=== PATIENT | male | born 2000 | race Caucasian/White ===

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

== ENCOUNTER 2022-04-17 14:33 | Emergency (ER) | payer OTHER, SELFPAY ==
[2022-04-17 14:35] VITALS: BP 140/80; PULSE 78; RESP 15; TEMP 37.1; O2SAT 100; BMI 17.7
--- NOTE | 2022-04-17 15:04 | ED.WOUNDLAC ---
HPI - Wound/Laceration General Chief Complaint: Wound/Laceration Stated Complaint: Cut tip of finger off at work Time Seen by Provider: 04/17/22 14:49 Source: patient Mode of arrival: Ambulatory History of Present Illness HPI narrative: Patient is a 21-year-old male who was at work when a glass that he was washing broke and he cut the tip of his right index finger. He is up-to-date on immunizations. He did wash it prior to arrival. Was covered with a bandage prior to arrival. Related Data Home Medications Medication Instructions Recorded Confirmed No Known Home Medications 04/15/22 04/15/22 Allergies Allergy/AdvReac Type Severity Reaction Status Date / Time No Known Drug Allergies Allergy Verified 04/17/22 14:42 Review of Systems Constitutional Constitutional: Reports system reviewed and no additional complaints, except as documented Integumentary/Breasts Comments: Cut to the tip of the right index finger Neurologic Neurologic: Reports system reviewed and no additional complaints, except as documented Hematologic/Lymphatic Hematologic/Lymphatic: Reports system reviewed and no additional complaints, except as documented Patient History Medical History Healthy adult Social History Smoking Status: Never smoker Smoking Status: Never smoker alcohol intake frequency: holidays/special occasions only Substance Use Type: does not use Exam Initial Vital Signs Initial Vital Signs: Vital Signs Temperature 98.7 F 04/17/22 14:35 Pulse Rate 78 04/17/22 14:35 Respiratory Rate 15 04/17/22 14:35 Blood Pressure 140/80 04/17/22 14:35 Pulse Oximetry 100 04/17/22 14:35 Oxygen Delivery Method 04/17/22 14:35 Const General: cooperative and comfortable HENMT Head: normal to inspection and normocephalic Cardio Pulses: radial pulses present on the right Skin Other: Patient with a superficial very distal skin avulsion to the pad of the right index finger. There is no nail involvement. Neuro Sensory Exam: no sensory deficits noted Extrem Other: Distal superficial skin avulsion right index finger Course Vital Signs Vital signs: Vital Signs - 8 hr 04/17/22 14:35 Temperature 98.7 F Pulse Rate 78 Respiratory Rate 15 Blood Pressure 140/80 Pulse Oximetry 100 Oxygen Delivery Method Room Air MDM - Wound/Laceration MDM Narrative Medical decision making narrative: A small piece of Gelfoam was placed over the area to stop the bleeding and then it was covered with a bandage. Patient was given care instructions and return precautions. He expressed understanding and agreement. Discharge Plan Departure Patient Disposition: Home Clinical Impression: Avulsion of skin Instructions: DI for Avulsion Laceration (Not Requiring Sutures) Activity Restrictions/Additional Instructions: Recommend that you leave the bandage was placed today on for the next 24 hours. After that you can take the bandage off. You can put topical antibiotic ointment over the area. I do recommend that you do not soak your hand in any water until the wound is healed. Return to the emergency department for any new or worsening symptoms. Prescriptions: No Action No Known Home Medications Referrals: Emmanuel Wu MD [Primary Care Provider] -
== END 2022-04-17 15:15 | disposition home or self-care (01) ==
PROVIDERS: Emergency Provider Emergency Medicine; Family Provider Pediatrics; PCP Pediatrics
DX: S61.210A Laceration without foreign body of right index finger without damage to nail, initial encounter (principal); W25.XXXA Contact with sharp glass, initial encounter; Y99.0 Civilian activity done for income or pay
CPT/HCPCS: 99282

== ENCOUNTER → 2022-04-20 11:42 | Outpatient (CLI) | payer OTHER, MEDICAID, SELFPAY ==
[2022-04-23 17:52] LABS: H. Pylori Antigen Stool Negative (Negative)
== END ==
PROVIDERS: Family Provider Pediatrics; PCP Pediatrics; Referring Provider Registered Nurse; Visit Provider Registered Nurse
DX: R19.7 Diarrhea, unspecified (principal)
CPT/HCPCS: 87045; 87077; 87338; 87899

== ENCOUNTER → 2022-08-06 15:06 | Outpatient (CLI) | payer OTHER, MEDICAID, SELFPAY ==
--- NOTE | 2022-08-06 15:07 | DI.US.S_ITS ---
PROCEDURE: US SCROTUM INDICATIONS: lump in scrotum TECHNIQUE: Real-time scanning was performed of the scrotum and testicles, with image documentation. Color and pulse Doppler interrogation was performed of both testicles. COMPARISON: None. FINDINGS: Right: Testicle is normal in size at 4.5 x 2.2 x 3.0 cm, and homogenous in echotexture. Epididymis is normal in overall size and morphology. No hydrocele or varicoceles. Overlying scrotal skin is normal in thickness. Left: Testicle is normal in size at 4.3 x 2.1 x 2.4 cm, and homogeneous in echotexture. Epididymis is normal in overall size and morphology. No hydrocele or varicoceles. Overlying scrotal skin is normal in thickness. Doppler: Color and pulse Doppler demonstrate normal and symmetric arterial flow in both testicles. IMPRESSION: Normal scrotal ultrasound. Dictated by: Brayden Yen M.D. on 08/06/2022 at 16:11 Approved by: Brayden Yen M.D. on 08/06/2022 at 16:14
== END ==
PROVIDERS: Family Provider Pediatrics; PCP Pediatrics; Referring Provider Nurse Practitioner Family; Visit Provider Nurse Practitioner Family
DX: N50.89 Other specified disorders of the male genital organs (principal)
CPT/HCPCS: 76870